=== PATIENT | female | born 1970 | race Caucasian/White ===

== ENCOUNTER → 2020-03-06 18:02 | Outpatient (BNVA) | payer BC, SELFPAY | PROVIDERS: Family Provider Family Medicine; Visit Provider Family Medicine | DX: E03.9 Hypothyroidism, unspecified (principal) | CPT/HCPCS: 80061; 84443 ==

== ENCOUNTER 2020-05-13 11:49 | Outpatient (CLI) | payer BC, SELFPAY ==
--- NOTE | 2020-05-13 11:55 | MM_ITS ---
WS: [id number] Bilateral screening digital mammogram, 05/13/2020 Clinical Data: SCREENING Comparison: 11/15/2016, 12/26/2012, 08/10/2011. Findings: The breast parenchymal pattern shows fibroglandular tissue. No spiculated masses or clustered calcifi cations are seen. There are no secondary signs of carcinoma. MM/[place] [id number] Impression: 1. Negative bilateral mammogram unchanged. 2. Recommend annual screening mammograms. BIRADS: 1-Negative FOLLOW UP: 1 Year Follow-up The CAD finished cloth checker was used.
== END 2020-05-13 11:50 | disposition home or self-care (01) ==
LOC: RADSHAW 11:54
PROVIDERS: PCP Family Medicine; Visit Provider Family Medicine
DX: Z12.31 Encounter for screening mammogram for malignant neoplasm of breast (principal)
CPT/HCPCS: 77067

== ENCOUNTER → 2021-03-27 12:15 | Outpatient (BNVA) | payer BC, SELFPAY | PROVIDERS: PCP Family Medicine; Visit Provider Family Medicine | DX: E03.9 Hypothyroidism, unspecified (principal) | CPT/HCPCS: 84443 ==

== ENCOUNTER → 2021-04-03 12:10 | Outpatient (BNVA) | payer BC, SELFPAY | PROVIDERS: PCP Family Medicine; Visit Provider Nurse Practitioner Family | DX: Z20.822 Contact with and (suspected) exposure to COVID-19 (principal) | CPT/HCPCS: 87635 ==

== ENCOUNTER 2022-04-11 12:53 | Outpatient (CLI) | payer BC, SELFPAY ==
--- NOTE | 2022-04-11 13:14 | MM_ITS ---
WS: [id number] BILATERAL 3D TOMOSYNTHESIS DIGITAL SCREENING MAMMOGRAPHY WITH CAD CLINICAL INFORMATION: SCREENING HISTORY: Screening mammogram. No current complaints. COMPARISON: May 13, 2020 TECHNIQUE: Bilateral CC and MLO views. FINDINGS: The breasts are composed of heterogeneous fibroglandular density tissue, which can limit the detectio n of small underlying mass lesions. No suspicious mass, asymmetry, calcifications, or architectural d istortion. No evidence of malignancy. Incidental intramammary lymph nodes with fatty gwen. A few inci dental punctate calcifications. MM/[place] [id number] IMPRESSION: BI-RADS: 2-Benign FOLLOW UP: 1 Year Follow-up Recommend return to annual screening mammography.
== END 2022-04-11 12:54 | disposition home or self-care (01) ==
LOC: RAD 12:55
PROVIDERS: PCP Family Medicine; Visit Provider Family Medicine
DX: Z12.31 Encounter for screening mammogram for malignant neoplasm of breast (principal)
CPT/HCPCS: 77063; 77067

== ENCOUNTER → 2023-05-15 16:00 | Outpatient (BNVA) | payer BC, SELFPAY | PROVIDERS: PCP Family Medicine; Visit Provider Emergency Medicine | DX: R05.9 Cough, unspecified (principal); B34.9 Viral infection, unspecified; R06.02 Shortness of breath | CPT/HCPCS: 71046; 87400; 87426 ==

== ENCOUNTER → 2023-06-26 15:51 | Outpatient (BNVA) | payer BC, SELFPAY | PROVIDERS: PCP Family Medicine; Referring Provider Internal Medicine Rheumatology; Visit Provider Internal Medicine Rheumatology | DX: Z11.1 Encounter for screening for respiratory tuberculosis (principal); M19.90 Unspecified osteoarthritis, unspecified site; Z11.59 Encounter for screening for other viral diseases; Z79.899 Other long term (current) drug therapy | CPT/HCPCS: 80076; 82565; 85025; 86140; 86480; 86704; 86803; 87340 ==

== ENCOUNTER → 2024-01-07 08:20 | Outpatient (BNVA) | payer BC, SELFPAY | PROVIDERS: PCP Family Medicine; Visit Provider Specialist | DX: G61.81 Chronic inflammatory demyelinating polyneuritis (principal) | CPT/HCPCS: 80503; 82945; 84157; 87070; 87075; 87205; 89050 ==

== ENCOUNTER 2024-01-31 08:00 | Oncology outpatient (recurring) (ONCR) | payer BC, SELFPAY ==
[2024-01-27] VITALS (7 sets, daily range): BP systolic 97–120; BP diastolic 58–71; PULSE 59–70; RESP 16; TEMP 36.4–36.9; O2SAT 94–98
[2024-01-27] MEDS: acetaminophen 325 mg Tablet 650 MG PO (09:40)
[2024-01-27] MEDS: diphenhydrAMINE 25 mg Capsule PO (09:41)
[2024-01-27] MEDS: immune globulin (Privigen ONC) 40 GM in empty flexible container 1 EACH IV (10:25)
[2024-01-28] VITALS (9 sets, daily range): BP systolic 100–107; BP diastolic 59–75; PULSE 58–81; RESP 16; TEMP 36.2–36.9; O2SAT 96–99
[2024-01-28] MEDS: acetaminophen 325 mg Tablet 650 MG PO (09:23)
[2024-01-28] MEDS: diphenhydrAMINE 25 mg Capsule PO (09:23)
[2024-01-28] MEDS: immune globulin (Privigen ONC) 40 GM in empty flexible container 1 EACH IV (10:05)
[2024-01-29] VITALS (9 sets, daily range): BP systolic 101–121; BP diastolic 63–84; PULSE 62–73; RESP 16; TEMP 36.7–37.4; O2SAT 96–99
[2024-01-29] MEDS: diphenhydrAMINE 25 mg Capsule PO (09:12)
[2024-01-29] MEDS: acetaminophen 325 mg Tablet 650 MG PO (09:12)
[2024-01-29] MEDS: immune globulin (Privigen ONC) 40 GM in empty flexible container 1 EACH IV (09:50)
[2024-01-30] VITALS (7 sets, daily range): BP systolic 100–119; BP diastolic 63–79; PULSE 61–75; RESP 16; TEMP 36.4–36.7; O2SAT 92–99
[2024-01-30] MEDS: diphenhydrAMINE 25 mg Capsule PO (09:03)
[2024-01-30] MEDS: acetaminophen 325 mg Tablet 650 MG PO (09:03)
[2024-01-30] MEDS: immune globulin (Privigen ONC) 40 GM in empty flexible container 1 EACH IV (09:38)
[2024-01-31] VITALS (10 sets, daily range): BP systolic 97–111; BP diastolic 65–72; PULSE 62–77; RESP 16; TEMP 35.8–36.6; O2SAT 97–99
[2024-01-31] MEDS: diphenhydrAMINE 25 mg Capsule PO (08:18)
[2024-01-31] MEDS: acetaminophen 325 mg Tablet 650 MG PO (08:18)
[2024-01-31] MEDS: immune globulin (Privigen ONC) 40 GM in empty flexible container 1 EACH IV (08:55)
== END 2024-02-03 23:59 | disposition home or self-care (01) ==
PROVIDERS: PCP Family Medicine; Visit Provider Specialist
DX: G61.81 Chronic inflammatory demyelinating polyneuritis (principal); Z79.899 Other long term (current) drug therapy; Z53.9 Procedure and treatment not carried out, unspecified reason
CPT/HCPCS: 96365; 96366; J1459

== ENCOUNTER 2024-02-17 08:51 | Oncology outpatient (recurring) (ONCR) | payer BC, SELFPAY ==
[2024-02-17] VITALS (10 sets, daily range): BP systolic 102–128; BP diastolic 60–77; PULSE 61–84; RESP 16; TEMP 36.3–36.8; O2SAT 95–98
[2024-02-17] MEDS: acetaminophen 325 mg Tablet 650 MG PO (09:30)
[2024-02-17] MEDS: diphenhydrAMINE 25 mg Capsule PO (09:30)
[2024-02-17] MEDS: [UNRECOGNIZED DRUG - OTHER] IV (10:11)
[2024-02-17] MEDS: IMMUNE GLOBULIN IV (10:11)
== END 2024-03-05 23:59 | disposition home or self-care (01) ==
PROVIDERS: PCP Family Medicine; Visit Provider Specialist
DX: Z79.899 Other long term (current) drug therapy (principal); G61.81 Chronic inflammatory demyelinating polyneuritis
CPT/HCPCS: 96365; 96366; J1459

== ENCOUNTER 2024-03-30 09:00 | Oncology outpatient (recurring) (ONCR) | payer BC, SELFPAY ==
[2024-03-10] VITALS (10 sets, daily range): BP systolic 97–109; BP diastolic 51–75; PULSE 61–80; RESP 16; TEMP 36.3–37.1; O2SAT 95–98
[2024-03-10] MEDS: diphenhydrAMINE 25 mg Capsule PO (09:41)
[2024-03-10] MEDS: acetaminophen 325 mg Tablet 650 MG PO (09:41)
[2024-03-10] MEDS: [UNRECOGNIZED DRUG - OTHER] IV (10:15)
[2024-03-10] MEDS: IMMUNE GLOBULIN IV (10:15)
[2024-03-30] VITALS (10 sets, daily range): BP systolic 96–129; BP diastolic 60–84; PULSE 64–85; RESP 16–17; TEMP 36.1–36.7; O2SAT 97–99
[2024-03-30] MEDS: SODIUM CHLORIDE 0.9% IV (08:25)
[2024-03-30] MEDS: METHYLPREDNISOLONE SOD SUCC IV (08:25)
[2024-03-30 08:57] LABS: Basophils % 1.2 %; Eosinophils # 0.4 10^3/uL (0.0-0.8); Eosinophils % 10.5 %; Hematocrit 38.4 % (36-47); Lymphocytes # 1.1 10^3/uL (0.8-4.8); Lymphocytes % 31.5 %; Mean Corpuscular HGB Conc 33.1 g/dL (30-55); Mean Corpuscular Hemoglobin 30.4 pg (27-33); Mean Corpuscular Volume 91.9 fl (85-98); Mean Platelet Volume 10.3 fL (7.4-10.4); Monocytes # 0.5 10^3/uL (0.2-0.9); Monocytes % 14.3 %; Neutrophils # 1.45 10^3/uL (1.8-7.7); Neutrophils % 42.2 %; Nucleated Red Blood Cells % 0 %; Platelet Count 185 10^3/cmm (157-399); Red Blood Count 4.18 10^6/uL (3.85-5.65); Red Cell Distribution Width 15.2 % (12.1-15.1); White Blood Count 3.43 10^3/uL (3.29-11.43)
[2024-03-30 09:25] LABS: Alanine Aminotransferase 27 U/L (0-33); Alkaline Phosphatase 65 U/L (35-105); Aspartate Amino Transferase 27 U/L (0-32); Creatinine Clr Calc Pharmacy 113.8818; Globulin 4.2 g/dL (1.3-4.6); Glomerular Filtration Rate 87.9 mL/min (90-130); Total Bilirubin 0.3 mg/dL (0.15-1.2); Total Protein 8.2 g/dL (6.6-8.7)
[2024-03-30 09:29] LABS: Erythrocyte Sedimentation Rate 24 mm/hr (0-15)
[2024-03-30] MEDS: [UNRECOGNIZED DRUG - OTHER] IV (09:45)
[2024-03-30] MEDS: IMMUNE GLOBULIN IV (09:45)
== END 2024-04-04 23:59 | disposition home or self-care (01) ==
LOC: ONCMED 13:25 → RAD 03-31 00:01
PROVIDERS: Internal Medicine Rheumatology; PCP Family Medicine; Visit Provider Specialist
DX: G61.81 Chronic inflammatory demyelinating polyneuritis; Z79.899 Other long term (current) drug therapy; Z79.620 Long term (current) use of immunosuppressive biologic; M05.79 Rheumatoid arthritis with rheumatoid factor of multiple sites without organ or systems involvement; Z53.9 Procedure and treatment not carried out, unspecified reason
CPT/HCPCS: 80076; 82565; 85025; 85651; 86140; 96365; 96366; 96367; J1459; J1561; J2919; J7050

== ENCOUNTER 2024-04-13 06:00 | Outpatient (RCR) | payer BC, SELFPAY | END 2024-05-05 23:59 | disposition home or self-care (01) | LOC: MPT 06:00 | PROVIDERS: PCP Family Medicine; Visit Provider Specialist | DX: G61.81 Chronic inflammatory demyelinating polyneuritis (principal) | CPT/HCPCS: 97110; 97162 ==

== ENCOUNTER 2024-04-20 09:04 | Oncology outpatient (recurring) (ONCR) | payer BC, SELFPAY ==
[2024-04-20] VITALS (10 sets, daily range): BP systolic 101–137; BP diastolic 63–88; PULSE 65–94; RESP 16; TEMP 35.8–36.8; O2SAT 95–98
--- NOTE | 2024-04-20 09:53 | PC.NURSE ---
patient reports taking premedication prior to arrival, no tylenol or benadryl given prior to infusion.
[2024-04-20] MEDS: METHYLPREDNISOLONE SOD SUCC IV (10:47)
[2024-04-20] MEDS: SODIUM CHLORIDE 0.9% IV (10:47)
[2024-04-20] MEDS: IMMUNE GLOBULIN IV (12:16)
[2024-04-20] MEDS: [UNRECOGNIZED DRUG - OTHER] IV (12:16)
== END 2024-05-05 23:59 | disposition home or self-care (01) ==
PROVIDERS: PCP Family Medicine; Visit Provider Specialist
DX: G61.81 Chronic inflammatory demyelinating polyneuritis (principal); Z79.899 Other long term (current) drug therapy
CPT/HCPCS: 96365; 96366; 96367; J1459; J2919; J7050

== ENCOUNTER 2024-05-04 08:53 | Outpatient (CLI) | payer BC, SELFPAY ==
--- NOTE | 2024-05-04 08:45 | MR_ITS ---
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 Technique: Multiplanar, multisequence noncontrast imaging of the cervical spine. Straightening and very slight reversal the cervical lordosis centered at C4-5. No signal abnormality within the cord. Posterior fossa is negative. Signal within the cervical cord is normal. Visualized posterior fossa is unremarkable. Craniocervical junction, C1 and C2 relationship, odontoid process and soft tissues are normal. C2-C3: Normal. C3-C4: Mild osteophytic ridging. Small RIGHT foraminal disc osteophyte complex. Mild disc encroachmen t upon the ventral thecal sac. Mild bilateral foraminal stenosis, RIGHT greater than LEFT. C4-C5: Diffuse annular disc bulging with osteophytic ridging. Small central disc protrusion. Near com plete effacement of ventral CSF. Mild central with moderate to severe RIGHT and severe LEFT foraminal stenosis. C5-C6: Mild annular disc bulging and osteophytic ridging. Moderate to severe bilateral foraminal sten osis predominantly due to osteophyte disease. C6-C7: Bilateral foraminal osteophytes resulting in moderate stenosis. C7-T1: Normal. Bilateral cervical chain lymph nodes are indeterminant measuring 10 mm at maximum diameter. No obviou s bulbous deformity of the nerve roots. MR/MR cervical spin wo con* [id number] IMPRESSION: 1. Slight reversal of normal cervical lordosis centered at C4-5. 2. Multilevel foraminal stenoses as described above. 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 3. C4-5: Mild central with moderate to severe RIGHT and severe LEFT foraminal stenosis. 4. C5-6: Moderate to severe bilateral foraminal stenosis. 5. C6-7: Moderate bilateral foraminal stenosis. 6. C3-4: RIGHT foraminal disc osteophyte complex. Mild foraminal stenosis, RIG HT greater than LEFT.
--- NOTE | 2024-05-04 09:30 | MR_ITS ---
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 TECHNIQUE: Diffusion imaging, multiplanar T1, T2 and FLAIR imaging obtained. No evidence for acute infarct or hemorrhage. Rae-white matter differentiation is normal. No remote or acute infarcts are volume loss. No prior infarct. There is very subtle, symmetric increa sed T2 and FLAIR signal in the mamillary bodies. No additional areas of increased T2 or FLAIR signal within the brain. No atrophy of the mamillary bodies. Ventricles and extra-axial spaces are normal. No inferior displacement of cerebellar tonsils. The sella turcica and pituitary gland are unremarkabl e. Dural venous sinuses and [place] of Child demonstrate no abnormality on this unenhanced studies. Paranasal sinuses: Diffuse increased T2 and FLAIR signal within the paranasal sinuses. Additional air -fluid level in the RIGHT sphenoid sinus. Mastoid air cells: Normal. Calvarium and scalp: Intact. MR/MR head wo con* [id number] IMPRESSION: 1. No acute diffusion abnormalities. No prior infarct. 2. Subtle increased T2 signal in the mamillary bodies with no atrophy. No robin tional signal abnormalities. 3. Mild diffuse paranasal sinus disease with an air-fluid level in the RIGHT s phenoid sinus.
== END 2024-05-04 08:54 | disposition home or self-care (01) ==
LOC: RAD 08:54
PROVIDERS: PCP Family Medicine; Visit Provider Specialist
DX: G61.81 Chronic inflammatory demyelinating polyneuritis (principal); G03.0 Nonpyogenic meningitis; R93.89 Abnormal findings on diagnostic imaging of other specified body structures; M48.02 Spinal stenosis, cervical region; M25.78 Osteophyte, vertebrae; M50.221 Other cervical disc displacement at C4-C5 level; M50.31 Other cervical disc degeneration, high cervical region; M50.322 Other cervical disc degeneration at C5-C6 level; M50.323 Other cervical disc degeneration at C6-C7 level
CPT/HCPCS: 70551; 72141

== ENCOUNTER 2024-06-01 09:00 | Oncology outpatient (recurring) (ONCR) | payer BC, SELFPAY ==
--- NOTE | 2024-05-12 08:46 | PC.NURSE ---
patient reports that she took her premedication of tylenol 650mg PO and benadryl 25mg PO prior to arrival.
[2024-05-12 08:47] VITALS: BP 114/76; PULSE 81; RESP 15; TEMP 36.1; O2SAT 99
[2024-05-12] MEDS: SODIUM CHLORIDE 0.9% IV (08:56)
[2024-05-12] MEDS: METHYLPREDNISOLONE SOD SUCC IV (08:56)
[2024-05-12 10:11] VITALS: BP 111/63; PULSE 81; RESP 16; TEMP 36.3; O2SAT 98
[2024-05-12] MEDS: [UNRECOGNIZED DRUG - OTHER] IV (10:11)
[2024-05-12] MEDS: IMMUNE GLOBULIN IV (10:11)
[2024-05-12 10:26] VITALS: BP 107/67; PULSE 73; RESP 16; TEMP 36.6; O2SAT 97
[2024-05-12 11:59] VITALS: BP 95/65; PULSE 80; RESP 16; TEMP 36.9; O2SAT 98
[2024-05-12 13:50] VITALS: BP 119/67; PULSE 86; RESP 16; TEMP 36.2; O2SAT 95
[2024-05-12 14:00] VITALS: BP 119/67; PULSE 86; RESP 16; TEMP 36.2; O2SAT 95
[2024-06-01] VITALS (9 sets, daily range): BP systolic 108–139; BP diastolic 64–86; PULSE 70–90; RESP 16; TEMP 36.2–36.9; O2SAT 97–99
[2024-06-01] MEDS: METHYLPREDNISOLONE SOD SUCC IV (09:36)
[2024-06-01] MEDS: SODIUM CHLORIDE 0.9% IV (09:36)
[2024-06-01] MEDS: IMMUNE GLOBULIN IV (10:52)
[2024-06-01] MEDS: [UNRECOGNIZED DRUG - OTHER] IV (10:52)
== END 2024-06-05 23:59 | disposition home or self-care (01) ==
PROVIDERS: PCP Family Medicine; Visit Provider Specialist
DX: Z53.9 Procedure and treatment not carried out, unspecified reason; G61.81 Chronic inflammatory demyelinating polyneuritis; Z79.899 Other long term (current) drug therapy
CPT/HCPCS: 96365; 96366; 96367; 96375; J1459; J2919; J7050

== ENCOUNTER 2024-06-22 08:34 | Oncology outpatient (recurring) (ONCR) | payer BC, SELFPAY ==
[2024-06-22 08:51] VITALS: BP 132/85; PULSE 77; RESP 116; TEMP 36.6; O2SAT 99
[2024-06-22] MEDS: SODIUM CHLORIDE 0.9% IV (09:21)
[2024-06-22] MEDS: METHYLPREDNISOLONE SOD SUCC IV (09:21)
--- NOTE | 2024-06-22 09:21 | PC.NURSE ---
Patient has taken tylenol and benadryl
[2024-06-22] MEDS: IMMUNE GLOBULIN IV (10:31)
[2024-06-22] MEDS: [UNRECOGNIZED DRUG - OTHER] IV (10:31)
[2024-06-22 11:05] VITALS: BP 122/78; PULSE 76; RESP 17; TEMP 36.9; O2SAT 98
[2024-06-22 14:19] VITALS: BP 145/83; PULSE 87; TEMP 37.1
== END 2024-07-03 23:59 | disposition home or self-care (01) ==
PROVIDERS: PCP Family Medicine; Visit Provider Specialist
DX: G61.81 Chronic inflammatory demyelinating polyneuritis (principal); Z79.899 Other long term (current) drug therapy; Z79.620 Long term (current) use of immunosuppressive biologic
CPT/HCPCS: 96365; 96366; 96367; J1561; J2919; J7050

== ENCOUNTER 2024-07-13 08:38 | Oncology outpatient (recurring) (ONCR) | payer BC, SELFPAY ==
[2024-07-13 08:54] VITALS: BP 115/65; PULSE 73; RESP 16; TEMP 36.4; O2SAT 97
--- NOTE | 2024-07-13 08:57 | PC.NURSE ---
pt took tylenol and benadryl at home
[2024-07-13] MEDS: METHYLPREDNISOLONE SOD SUCC IV (09:36)
[2024-07-13] MEDS: SODIUM CHLORIDE 0.9% IV (09:36)
[2024-07-13 10:27] VITALS: BP 114/80; PULSE 75; RESP 16; TEMP 36.3; O2SAT 98
[2024-07-13] MEDS: IMMUNE GLOBULIN IV (10:27)
[2024-07-13] MEDS: [UNRECOGNIZED DRUG - OTHER] IV (10:27)
[2024-07-13 11:35] VITALS: BP 98/66; PULSE 63; RESP 16; TEMP 36.5; O2SAT 96
[2024-07-13 14:00] VITALS: BP 98/64; PULSE 66; RESP 16; TEMP 36.6; O2SAT 96
== END 2024-07-13 23:59 | disposition home or self-care (01) ==
PROVIDERS: PCP Family Medicine; Visit Provider Specialist
DX: G61.81 Chronic inflammatory demyelinating polyneuritis (principal); Z79.899 Other long term (current) drug therapy
CPT/HCPCS: 96365; 96366; 96367; J1459; J2919; J7050

== ENCOUNTER 2024-08-03 08:29 | Oncology outpatient (recurring) (ONCR) | payer BC, SELFPAY ==
[2024-08-03 09:04] VITALS: BP 118/75; PULSE 74; RESP 18; TEMP 36.8; O2SAT 100
[2024-08-03] MEDS: METHYLPREDNISOLONE SOD SUCC IV (09:22)
[2024-08-03] MEDS: SODIUM CHLORIDE 0.9% IV (09:22)
[2024-08-03 10:49] VITALS: BP 106/72; PULSE 73; RESP 18; TEMP 36.3; O2SAT 98
[2024-08-03 11:46] VITALS: BP 117/77; PULSE 73; RESP 16; TEMP 37.3; O2SAT 97
[2024-08-03 14:26] VITALS: BP 118/75; PULSE 74; RESP 16; TEMP 37.3; O2SAT 96
[2024-08-03 14:59] LABS: Basophils % 0.7 %; Eosinophils % 0.7 %; Hematocrit 35.4 % (36-47); Lymphocytes # 0.4 10^3/uL (0.8-4.8); Lymphocytes % 13.5 %; Mean Corpuscular HGB Conc 33.3 g/dL (30-55); Mean Corpuscular Hemoglobin 31.7 pg (27-33); Mean Corpuscular Volume 95.2 fl (85-98); Monocytes # 0.1 10^3/uL (0.2-0.9); Monocytes % 1.9 %; Neutrophils # 2.21 10^3/uL (1.8-7.7); Neutrophils % 82.8 %; Nucleated Red Blood Cells % 0 %; Platelet Count 190 10^3/cmm (157-399); Red Blood Count 3.72 10^6/uL (3.85-5.65); Red Cell Distribution Width 14.4 % (12.1-15.1); White Blood Count 2.67 10^3/uL (3.29-11.43)
[2024-08-03 15:03] LABS: Erythrocyte Sedimentation Rate 54 mm/hr (0-15)
[2024-08-03 15:15] LABS: Alanine Aminotransferase 21 U/L (0-33); Albumin Level 3.7 g/dL (3.5-5.2); Alkaline Phosphatase 67 U/L (35-105); Globulin 5.9 g/dL (1.3-4.6); Glomerular Filtration Rate 87.5 mL/min (90-130); Total Bilirubin 0.4 mg/dL (0.15-1.2); Total Protein 9.6 g/dL (6.6-8.7)
[2024-08-03 16:01] LABS: Aspartate Amino Transferase 29 U/L (0-32)
== END 2024-08-03 23:59 | disposition home or self-care (01) ==
PROVIDERS: Internal Medicine Rheumatology; PCP Family Medicine; Visit Provider Specialist
DX: G61.81 Chronic inflammatory demyelinating polyneuritis (principal); Z79.899 Other long term (current) drug therapy
CPT/HCPCS: 80076; 82565; 85025; 85651; 86140; 96365; 96366; 96367; J1459; J2919; J7050

== ENCOUNTER 2024-08-24 08:30 | Oncology outpatient (recurring) (ONCR) | payer BC, SELFPAY ==
[2024-08-24] MEDS: SODIUM CHLORIDE 0.9% IV (09:20)
[2024-08-24] MEDS: METHYLPREDNISOLONE SOD SUCC IV (09:20)
[2024-08-24 09:21] LABS: Basophils # 0.1 10^3/uL (0.0-0.1); Basophils % 1.2 %; Eosinophils # 0.5 10^3/uL (0.0-0.8); Hematocrit 38.2 % (36-47); Lymphocytes # 1.4 10^3/uL (0.8-4.8); Lymphocytes % 33.3 %; Mean Corpuscular HGB Conc 33.5 g/dL (30-55); Mean Corpuscular Hemoglobin 31.1 pg (27-33); Mean Corpuscular Volume 92.9 fl (85-98); Mean Platelet Volume 10.2 fL (7.4-10.4); Monocytes # 0.5 10^3/uL (0.2-0.9); Neutrophils # 1.87 10^3/uL (1.8-7.7); Neutrophils % 43.5 %; Nucleated Red Blood Cells % 0 %; Platelet Count 172 10^3/cmm (157-399); Red Blood Count 4.11 10^6/uL (3.85-5.65); Red Cell Distribution Width 13.8 % (12.1-15.1); White Blood Count 4.29 10^3/uL (3.29-11.43)
[2024-08-24 09:24] VITALS: BP 117/74; PULSE 71; RESP 16; TEMP 36.4; O2SAT 99
[2024-08-24] MEDS: [UNRECOGNIZED DRUG - OTHER] IV (10:46)
[2024-08-24] MEDS: IMMUNE GLOBULIN IV (10:46)
[2024-08-24 12:55] VITALS: BP 112/75; PULSE 84; RESP 16; TEMP 36.4; O2SAT 97
[2024-08-24 14:17] VITALS: BP 125/80; PULSE 80; RESP 18; TEMP 36.4; O2SAT 99
== END 2024-08-24 23:59 | disposition home or self-care (01) ==
PROVIDERS: Internal Medicine Rheumatology; PCP Family Medicine; Visit Provider Specialist
DX: G61.81 Chronic inflammatory demyelinating polyneuritis (principal); Z79.899 Other long term (current) drug therapy
CPT/HCPCS: 85025; 96365; 96366; 96367; J1459; J2919; J7050

== ENCOUNTER 2024-09-14 08:32 | Oncology outpatient (recurring) (ONCR) | payer BC, SELFPAY ==
[2024-09-14 08:49] VITALS: BP 122/82; PULSE 79; RESP 16; TEMP 36.4; O2SAT 98
[2024-09-14] MEDS: METHYLPREDNISOLONE SOD SUCC IV (08:59)
[2024-09-14] MEDS: SODIUM CHLORIDE 0.9% IV (08:59)
[2024-09-14 10:30] VITALS: BP 120/72; PULSE 75; RESP 16; TEMP 36.4; O2SAT 98
[2024-09-14] MEDS: [UNRECOGNIZED DRUG - OTHER] IV (10:30)
[2024-09-14] MEDS: IMMUNE GLOBULIN IV (10:30)
[2024-09-14 11:00] VITALS: BP 123/80; PULSE 92; RESP 16; TEMP 36.5; O2SAT 97
[2024-09-14 15:12] VITALS: BP 150/80; PULSE 80; RESP 16; TEMP 36.4; O2SAT 98
== END 2024-10-03 23:59 | disposition home or self-care (01) ==
PROVIDERS: PCP Family Medicine; Visit Provider Specialist
DX: G61.81 Chronic inflammatory demyelinating polyneuritis (principal); Z79.899 Other long term (current) drug therapy; Z79.620 Long term (current) use of immunosuppressive biologic
CPT/HCPCS: 96365; 96366; 96367; J1459; J2919; J7050

== ENCOUNTER 2024-10-26 08:31 | Oncology outpatient (recurring) (ONCR) | payer BC, SELFPAY ==
[2024-10-05 08:28] VITALS: PULSE 72; RESP 18; TEMP 36.3; O2SAT 98
[2024-10-05 08:45] VITALS: BP 113/69
[2024-10-05] MEDS: METHYLPREDNISOLONE SOD SUCC IV (08:54)
[2024-10-05] MEDS: SODIUM CHLORIDE 0.9% IV (08:54)
[2024-10-05] MEDS: [UNRECOGNIZED DRUG - OTHER] IV (10:16)
[2024-10-05] MEDS: IMMUNE GLOBULIN IV (10:16)
[2024-10-05 15:34] VITALS: BP 117/79; PULSE 85; RESP 18; TEMP 36.9; O2SAT 96
[2024-10-26 08:55] LABS: Basophils % 0.8 %; Eosinophils # 0.3 10^3/uL (0.0-0.8); Eosinophils % 8.9 %; Hematocrit 38.6 % (36-47); Lymphocytes # 1.5 10^3/uL (0.8-4.8); Lymphocytes % 40.9 %; Mean Corpuscular HGB Conc 33.7 g/dL (30-55); Mean Corpuscular Volume 95.1 fl (85-98); Mean Platelet Volume 10.1 fL (7.4-10.4); Monocytes # 0.4 10^3/uL (0.2-0.9); Monocytes % 11.8 %; Neutrophils % 37.6 %; Nucleated Red Blood Cells % 0 %; Platelet Count 169 10^3/cmm (157-399); Red Blood Count 4.06 10^6/uL (3.85-5.65); Red Cell Distribution Width 14.4 % (12.1-15.1); White Blood Count 3.72 10^3/uL (3.29-11.43)
[2024-10-26] MEDS: SODIUM CHLORIDE 0.9% IV (09:07)
[2024-10-26] MEDS: METHYLPREDNISOLONE SOD SUCC IV (09:07)
[2024-10-26 09:09] VITALS: BP 106/67; PULSE 68; RESP 18; TEMP 36.3; O2SAT 98
[2024-10-26 09:12] LABS: Alanine Aminotransferase 24 U/L (0-33); Albumin Level 3.9 g/dL (3.5-5.2); Alkaline Phosphatase 75 U/L (35-105); Aspartate Amino Transferase 25 U/L (0-32); Bilirubin Direct 0.12 mg/dL (0.00-0.30); Globulin 3.9 g/dL (1.3-4.6); Glomerular Filtration Rate 65.5 mL/min (90-130); Total Bilirubin 0.5 mg/dL (0.15-1.2); Total Protein 7.8 g/dL (6.6-8.7)
[2024-10-26 09:18] LABS: Erythrocyte Sedimentation Rate 3 mm/hr (0-15)
[2024-10-26] MEDS: IMMUNE GLOBULIN IV (10:36)
[2024-10-26] MEDS: [UNRECOGNIZED DRUG - OTHER] IV (10:36)
[2024-10-26 12:25] VITALS: BP 107/71; PULSE 73; RESP 16; TEMP 36.3; O2SAT 98
[2024-10-26 14:30] VITALS: BP 127/79; PULSE 78; RESP 16; TEMP 36.4; O2SAT 98
== END 2024-11-02 23:59 | disposition home or self-care (01) ==
PROVIDERS: Internal Medicine Rheumatology; PCP Family Medicine; Visit Provider Specialist
DX: G61.81 Chronic inflammatory demyelinating polyneuritis; Z79.620 Long term (current) use of immunosuppressive biologic; Z79.899 Other long term (current) drug therapy; Z53.9 Procedure and treatment not carried out, unspecified reason
CPT/HCPCS: 80076; 82565; 85025; 85651; 86140; 96365; 96366; 96367; J1459; J1561; J2919; J7050

== ENCOUNTER 2024-11-16 08:37 | Oncology outpatient (recurring) (ONCR) | payer BC, SELFPAY ==
[2024-11-16 09:17] VITALS: BP 102/72; PULSE 76; RESP 16; O2SAT 98
[2024-11-16] MEDS: [UNRECOGNIZED DRUG - OTHER] IV (11:26)
[2024-11-16] MEDS: IMMUNE GLOBULIN IV (11:26)
[2024-11-16 11:54] VITALS: BP 126/84; PULSE 84; RESP 16; TEMP 37.1; O2SAT 98
[2024-11-16 13:20] VITALS: BP 117/54; PULSE 70; RESP 16; TEMP 36.7; O2SAT 97
[2024-11-16 14:45] VITALS: BP 117/84; PULSE 58; RESP 16; TEMP 36.6; O2SAT 98
== END 2024-12-03 23:59 | disposition home or self-care (01) ==
PROVIDERS: PCP Family Medicine; Visit Provider Specialist
DX: G61.81 Chronic inflammatory demyelinating polyneuritis (principal); Z79.620 Long term (current) use of immunosuppressive biologic; Z79.899 Other long term (current) drug therapy
CPT/HCPCS: 96365; 96366; 96367; J1459; J2919; J7050

== ENCOUNTER 2024-12-29 08:30 | Oncology outpatient (recurring) (ONCR) | payer BC, SELFPAY ==
[2024-12-07 09:17] LABS: Hematocrit 37.8 % (36-47); Hemoglobin 13.10 g/dL (11.27-16.99); Mean Corpuscular HGB Conc 34.7 g/dL (30-55); Mean Corpuscular Hemoglobin 31.6 pg (27-33); Mean Corpuscular Volume 91.1 fl (85-98); Nucleated Red Blood Cells % 0 %; Platelet Count 155 10^3/cmm (157-399); Red Blood Count 4.15 10^6/uL (3.85-5.65); White Blood Count 3.51 10^3/uL (3.29-11.43)
[2024-12-07 09:32] LABS: Alanine Aminotransferase 23 U/L (0-33); Albumin Level 4.0 g/dL (3.5-5.2); Alkaline Phosphatase 67 U/L (35-105); Aspartate Amino Transferase 24 U/L (0-32); Creatinine Clr Calc Pharmacy 88.3963; Globulin 3.8 g/dL (1.3-4.6); Total Protein 7.8 g/dL (6.6-8.7)
[2024-12-07] MEDS: [UNRECOGNIZED DRUG - OTHER] IV (10:22)
[2024-12-07] MEDS: IMMUNE GLOBULIN IV (10:22)
[2024-12-07 10:24] VITALS: BP 114/66; PULSE 68; RESP 16; TEMP 36.5; O2SAT 97
[2024-12-07 12:15] VITALS: BP 102/58; PULSE 66; RESP 16; TEMP 36.4; O2SAT 98
[2024-12-07 15:47] VITALS: BP 109/76; PULSE 84; RESP 16; TEMP 36.9; O2SAT 96
[2024-12-08 09:08] VITALS: BP 108/76; PULSE 69; RESP 17; TEMP 36.1; O2SAT 96
[2024-12-08] MEDS: [UNRECOGNIZED DRUG - OTHER] IV (09:08)
[2024-12-08] MEDS: IMMUNE GLOBULIN IV (09:08)
[2024-12-08 09:25] VITALS: BP 95/58; PULSE 64; RESP 17; TEMP 36.3; O2SAT 97
[2024-12-08 12:35] VITALS: BP 136/82; PULSE 63; RESP 18; TEMP 36.4; O2SAT 99
[2024-12-28 10:45] VITALS: BP 112/62; PULSE 64; RESP 18; TEMP 35.9
[2024-12-28] MEDS: [UNRECOGNIZED DRUG - OTHER] IV (10:53)
[2024-12-28] MEDS: IMMUNE GLOBULIN IV (10:53)
[2024-12-28 15:11] VITALS: BP 111/65; PULSE 91; RESP 18; TEMP 36.1; O2SAT 99
[2024-12-29] MEDS: IMMUNE GLOBULIN IV (09:17)
[2024-12-29] MEDS: [UNRECOGNIZED DRUG - OTHER] IV (09:17)
[2024-12-29 09:22] VITALS: BP 111/73; PULSE 97; TEMP 36.9; O2SAT 96
[2024-12-29 09:38] VITALS: BP 111/69; PULSE 74; TEMP 36.8; O2SAT 98
[2024-12-29 12:44] VITALS: BP 131/77; PULSE 76; TEMP 36.3; O2SAT 100
== END 2025-01-03 23:59 | disposition home or self-care (01) ==
PROVIDERS: Internal Medicine Rheumatology; PCP Family Medicine; Visit Provider Specialist
DX: G61.81 Chronic inflammatory demyelinating polyneuritis; Z79.899 Other long term (current) drug therapy; Z53.9 Procedure and treatment not carried out, unspecified reason
CPT/HCPCS: 80076; 82565; 85025; 85651; 86140; 96365; 96366; 96367; J1459; J2919; J7050; J9999

== ENCOUNTER 2025-04-13 13:16 | Outpatient (CLI) | payer BC, SELFPAY ==
--- NOTE | 2025-04-13 13:20 | MM_ITS ---
WS: [id number] BILATERAL 3D TOMOSYNTHESIS DIGITAL SCREENING MAMMOGRAPHY WITH CAD CLINICAL INFORMATION: SCREENING HISTORY: Screening mammogram. No current complaints. COMPARISON: None. TECHNIQUE: Bilateral CC and MLO views. FINDINGS: Scattered fibroglandular densities bilaterally. No suspicious focal mass, asymmetry, calcifications, or architectural distortion. No evidence of malignancy. A few incidental punctate calcifications. MM/MM scr tomosynthesis [id number] IMPRESSION: DENSITY: There are scattered areas of fibroglandular density. BI-RADS: 2 - Benign. FOLLOW UP: 1 Year Follow-up Recommend return to annual screening mammography.
== END 2025-04-13 13:17 | disposition home or self-care (01) ==
LOC: RAD 13:17
PROVIDERS: PCP Family Medicine; Visit Provider Family Medicine
DX: Z12.31 Encounter for screening mammogram for malignant neoplasm of breast (principal); R92.323 Mammographic fibroglandular density, bilateral breasts; R92.1 Mammographic calcification found on diagnostic imaging of breast
CPT/HCPCS: 77063; 77067